=== PATIENT | female | born 1995 | race Hispanic/Latino ===

== ENCOUNTER 2016-08-17 23:34 | Emergency (ER) | payer OTHER ==
[~2016-08-17] VITALS: Ht 154.9 cm; Wt 62.3 kg
[~2016-08-17 23:34] MED LIST: DOCU-41 PO; IBUP800T28 PO; OXYC1TAB24 PO
[2016-08-17 23:37] VITALS: BP 131/79; PULSE 66; RESP 12; O2SAT 98
--- NOTE | 2016-08-18 00:14 | ED.REPORT ---
HPI-General Illness Date of Service Aug 18, 2016 ED Provider: Levy Love DO Patient is a 20 year old female who presents to the ED complaining of epigastric abdominal pain onset 2199. Associated symptoms include nausea, belching, body aches and right sided head pain. She denies vomiting or fever. Patient reports that she thinks it could be related to the hot dog and stadium food that she ate during the soccer game. No one else that was with her got sick. Nursing Notes Stated Complaint: CHEST PAIN Chief Complaint: General Complaint Nursing Notes Reviewed: Yes Allergies: Coded Allergies: No Known Allergies (Unverified , 08/17/16) Scheduled Docusate Sodium (Colace) 100 Mg Capsule 100 MG PO BID Scheduled PRN Ibuprofen (Ibuprofen) 800 Mg Tablet 800 MG PO Q6H PRN PRN For Pain oxyCODONE-Acetaminophen 5-325 mg (oxyCODONE-Acetaminophen 5-325 mg) 1 Each Tablet 1-2 TAB PO Q4H PRN PRN For Pain General Time Seen by MD: 00:14 Chief Complaint Abdominal pain Hx Obtained From: Patient Arrived By: Walk-in Sudden in Onset?: Yes Onset Occurred: 1 - 4 hours ago Symptom Duration: Since onset Location: : Abdomen Quality: Cramping, Painful Recent Healthcare: No recent doctor visit, No recent hospitalization Similar Sx Previous: No Past Medical History Past Medical History none reported Smoking History Never Smoker Social History Other Social History: Good social support, Lives with children Ambulatory Status Independent Review of Systems Full Review of Systems Constitutional: Denies: Chills, Fever Respiratory: Denies: Non-productive cough, Shortness of breath GI: Reports: Abdominal pain, Belching, Nausea, Denies: Vomiting Female: Denies: Neurologic: Reports: Headache Complete sys rev & neg: except as marked. Physical Exam Vital Signs Vital Signs Date Time Temp Pulse Resp B/P Pulse Ox O2 Delivery O2 Flow Rate FiO2 08/18/16 03:02 36.7 67 16 118/62 100 Room Air 08/17/16 23:37 36.6 66 12 131/79 98 Room Air Initial VS: Reviewed General/Constitutional: Awake, Alert Head / Eyes: Atraumatic, Normocephalic, PERRL, EOMI Respiratory / Chest: Atraumatic, Breath sounds NL, Breath sounds = bilat, No respiratory distress Cardiovascular: Heart rate NL, Regular rhythm, Heart sounds NL Abdomen: Atraumatic, Soft, Non-tender Skin: Atraumatic, Color NL, No rash, Warm, Dry Neurologic: Oriented X3, Speech NL, No motor deficits, No sensory deficits Psychiatric: Affect NL, Mood NL Interpretation & Diagnostics Lab Results Interpretation Result Diagram: 08/18/16 0050 08/18/16 0050 Test 08/18/16 00:50 08/18/16 01:44 White Blood Count 9.4th/mm3 (3.8-10.1) Red Blood Count 4.28mil/mm3 (3.90-5.20) Hemoglobin 13.3g/dL (12.0-15.6) Hematocrit 38.7% (35.0-46.0) Mean Corpuscular Volume 90.4fL (81-100) Mean Corpuscular Hemoglobin 31.1pg (27.0-35.0) Mean Corpuscular Hemoglobin Concent 34.4% (32.0-37.0) Red Cell Distribution Width 11.8% (12.3-15.4) Platelet Count 225bil/L (150-400) Neutrophils (%) (Auto) 56.3% (40-74) Lymphocytes (%) (Auto) 34.4% (14-46) Monocytes (%) (Auto) 6.6% (4-12) Eosinophils (%) (Auto) 2.2% (0-5) Basophils (%) (Auto) 0.3% (0-3) Sodium Level 140mEq/L (134-144) Potassium Level 3.9mEq/L (3.5-5.2) Chloride Level 102mEq/L (97-108) Carbon Dioxide Level 23mmol/L (18-29) Blood Urea Nitrogen 12mg/dL (6-20) Creatinine 0.46mg/dL (0.57-1.00) Estimat Glomerular Filtration Rate 243mL/min (>59) Glucose Level 85mg/dL (60-99) Calcium Level 9.1mg/dL (8.5-10.1) Total Bilirubin 0.2mg/dL (0.0-1.2) Aspartate Amino Transf (AST/SGOT) 17U/L (0-50) Alanine Aminotransferase (ALT/SGPT) 12U/L (0-32) Alkaline Phosphatase 76U/L (25-150) Total Protein 7.8g/dL (6.4-8.4) Albumin 4.9g/dL (3.4-5.0) Lipase 33U/L (13-60) Urine Color Yellow (YELLOW) Urine Appearance Hazy (CLEAR,HAZY) Urine pH 6.5 (5.0-8.0) Urine Specific Finley 1.013 (1.003-1.035) Urine Protein Negativemg/dL (NEG,TRACE) Urine Glucose (UA) Negativemg/dL (NEGATIVE) Urine Ketones Tracemg/dL (NEGATIVE) Urine Occult Blood Negative (NEGATIVE) Urine Nitrite Negative (NEGATIVE) Urine Bilirubin Negative (NEGATIVE) Urine Urobilinogen Normalmg/dL (NORMAL) Urine Leukocyte Esterase Small (NEGATIVE) Urine RBC 0-2/hpf (0-2) Urine WBC 0-5/hpf (0-5) Urine Epithelial Cells Moderate/hpf (NONE-MOD) Urine Crystals None seen (NONE SEEN) Urine Bacteria Few/hpf (NONE-FEW) Urine Hyaline Casts None/lpf (NONE) Urine Granular Casts None seen (NONE SEEN) Urine Waxy Casts None seen (NONE SEEN) Urine Red Blood Cell Casts None seen (NONE SEEN) Urine White Blood Cell Casts None seen (NONE SEEN) Urine Mucus Present (None Seen) Urine Trichomonas None seen (NONE SEEN) Urine Yeast None (NONE SEEN) Urinalysis Comment None Urine Culture Reflexed Indicated Re-Eval/Medical Decision Med Decision/Clinical Course Healthy 20-year-old female ate a couple hot dogs at a soccer match. She started then to feel warm and nauseous and her got was queasy. She is pretty sure she has poisoning. She did not have fever. She did not vomit nor did she have diarrhea. She has no appreciable abdominal pain other than the nausea. Her vitals were normal. Her exam was benign. Labs were reassuring. She is not . She was treated with fluids Toradol and Zofran and she improved significantly. I do suspect that this may be food borne illness. As such we will discharge her home with a course of Zofran and close outpatient follow-up Time of Eval: 02:43 Re-Evaluation/Progress Note: Discussed plan for discharge. Patient understands and agrees to plan. All questions were addressed. Counseled Regarding: Diagnosis, Lab results, Need for follow-up, When/why to return to ED Discharge & Departure Primary Impression: Abdominal pain Abdominal location: epigastric Qualified Code: R10.13 - Epigastric pain Additional Impression: Nausea Disposition: Home Discharge Condition All VS Reviewed: Yes Condition: Stable Patient Instructions: Food Poisoning (ED) Additional Instructions: You are most likely experiencing food poisoning. Be sure to drink plenty of fluids. Stick to a clear diet for the next day or two until your symptoms are improved. You can take 1 Zofran every 8 hours as needed for nausea. Follow up with your primary care physician next week. Return to the emergency department if you develop any new or concerning symptoms. Referrals: Arie Gregory MD (PCP) Lidya Attestation Portions of this note were transcribed by Zahira Cuellar. I, Dr. Love personally performed the history, physical exam and medical decision-making; I reviewed and confirmed the accuracy of the information in the transcribed note. Signed by: Lidya Dunbar, 08/18/16 and 0245 copies to: Arie Gregory MD, Todd P DO Aug 18, 2016 00:14 Ranjana Cuellar Aug 18, 2016 00:32
[2016-08-18] MEDS ORDERED: 0.9% Sodium Chloride 1,000 ML IV ONE ×2 (00:38→00:40)
[2016-08-18] MEDS ORDERED: Ondansetron 2 mg/mL 2 mL Inj IVPUSH ONE (00:40)
[2016-08-18 01:05] LABS: BASOPHILS % (AUTO) 0.3 % (0-3); EOSINOPHILS % (AUTO) 2.2 % (0-5); MONOCYTES % (AUTO) 6.6 % (4-12); Mean Corpuscular Hemoglobin 31.1 pg (27.0-35.0); Mean Corpuscular Volume 90.4 fL (81-100); NEUTROPHILS % (AUTO) 56.3 % (40-74); Platelet Count 225 bil/L (150-400)
[2016-08-18 01:58] LABS: APPEARANCE,URINE HAZY (CLEAR,HAZY); COLOR,URINE YELLOW (YELLOW); OCCULT BLOOD,URINE NEGATIVE (NEGATIVE); PH,URINE 6.5 (5.0-8.0); UROBILINOGEN,URINE NORMAL (NORMAL)
[2016-08-18 03:02] VITALS: BP 118/62; PULSE 67; RESP 16; O2SAT 100
== END 2016-08-18 03:04 | disposition home or self-care (01) ==
LOC: SED 23:34
DX: R10.13 Epigastric pain (principal); R11.0 Nausea
CPT/HCPCS: 36415; 80053; 81000; 81025; 83690; 85025; 87086; 87088; 87147; 96361; 96374; 96375; 99285; J1885; J2405; J7030